=== PATIENT | female | born 1955 | race Hispanic/Latino ===

== ENCOUNTER 2018-01-05 09:19 | Emergency (ER) | payer OTHER ==
[2018-01-05 09:20] VITALS: BMI 29.8
[2018-01-05 09:36] VITALS: BP 164/91; PULSE 68; RESP 20; TEMP 97.8; O2SAT 98
--- NOTE | 2018-01-05 12:44 | RAD ---
PROCEDURE: Radiographs of the left humerus. HISTORY: r/o DVT COMPARISON: None. FINDINGS: BONES: Normal. No fracture or focal lesion. SOFT TISSUES: Normal. OTHER FINDINGS: None. IMPRESSION: Normal radiographs of left humerus.
--- NOTE | 2018-01-05 13:04 | C.PDOC ---
History Of Present Illness 62 y/o female presents to the ER complaining of left upper arm pain which has been present for the past 1 week. Patient states that she had a bruise in her left arm after she tripped and struck her left arm against a bannister 1 week ago. Patient reports that she saw a small "ball" in the area of the bruise. Patient denies chest pain and SOB. Time Seen by Provider: 01/05/18 09:45 Chief Complaint (Nursing): Upper Extremity Problem/Injury History Per: Patient History/Exam Limitations: no limitations Onset/Duration Of Symptoms: Days Current Symptoms Are (Timing): Still Present Severity: Moderate Past Medical History Reviewed: Historical Data, Nursing Documentation, Vital Signs Vital Signs: Last Vital Signs Temp 97.8 F 01/05/18 09:33 Pulse 68 01/05/18 09:33 Resp 20 01/05/18 09:33 BP 164/91 H 01/05/18 09:33 Pulse Ox 98 01/05/18 13:15 - Medical History PMH: HTN Denies: Colonic Polyps, Fractures Surgical History: Denies: Endoscopy - [facility] Procedures CLOSURE SKIN & SUBCUTANEOUS NEC (03/08/15) Family History: States: No Known Family Hx - Social History Hx Tobacco Use: No Hx Alcohol Use: No Hx Substance Use: No - Immunization History Hx Tetanus Toxoid Vaccination: No Hx Influenza Vaccination: No Hx Pneumococcal Vaccination: No Review Of Systems Except As Marked, All Systems Reviewed And Found Negative. Cardiovascular: Negative for: Chest Pain Respiratory: Negative for: Shortness of Breath Musculoskeletal: Positive for: Arm Pain (left upper arm pain) Physical Exam - Physical Exam Appears: Non-toxic, No Acute Distress Skin: Normal Color, Warm, Ecchymosis (ecchymosis to medial aspect of left arm with small hematoma upon palpation) Head: Atraumatic, Normacephalic Eye(s): bilateral: Normal Inspection Nose: Normal Oral Mucosa: Moist Neck: Supple Chest: Symmetrical Cardiovascular: Rhythm Regular Respiratory: Normal Breath Sounds, No Accessory Muscle Use, No Rales, No Rhonchi , No Wheezing Extremity: Normal ROM Neurological/Psych: Oriented x3, Normal Speech, Normal Motor, Normal Sensation ED Course And Treatment O2 Sat by Pulse Oximetry: 98 (RA) Pulse Ox Interpretation: Normal - Other Rad Left Humerus X-Ray X-Ray: Viewed By Me, Read By Radiologist Interpretation: PROCEDURE: Radiographs of the left humerus. HISTORY: r/o DVT. COMPARISON: None. FINDINGS: BONES: Normal. No fracture or focal lesion. SOFT TISSUES: Normal. OTHER FINDINGS: None. IMPRESSION: Normal radiographs of left humerus. Progress Note: X-Ray- Left Humerus found to be negative.Patient discharged and told to follow up with doctor for re-evaluation. Disposition - Disposition Referrals: [facility] Bibiana Christianson, [Non-Staff] - Disposition: HOME/ ROUTINE Disposition Time: 11:10 Condition: GOOD Additional Instructions: Thank you for letting us take care of you today. The emergency medical care you received today was directed at your acute symptoms. If you were prescribed any medication, please fill it and take as directed. It may take several days for your symptoms to resolve. Return to the Emergency Department if your symptoms worsen, do not improve, or if you have any other problems. Please contact your doctor or call one of the physicians/clinics you have been referred to that are listed on the Patient Visit Information form that is included in your discharge packet. Bring any paperwork you were given at discharge with you along with any medications you are taking to your follow up visit. Our treatment cannot replace ongoing medical care by a primary care provider (PCP) outside of the emergency department. Thank you for allowing the [facility] team to be part of your care today. Follow up with your doctor as needed for re-evaluation and further management. Instructions: Contusion (DC) Forms: [employer] ([place]) - Clinical Impression Clinical Impression: Arm pain
--- NOTE | 2018-01-05 15:12 | VASCLAB ---
PROCEDURE: Left Upper Extremity Venous Duplex Exam HISTORY: Pain in limb, r/o DVT PRIORS: None. TECHNIQUE: Left upper extremity, internal jugular, subclavian, axillary, brachial, ulnar, radial, basilic and upper cephalic veins were evaluated. Flow was assessed with color Doppler, compressibility, assessment of phasic flow and augmentation response. Report prepared by JESSY Bhagat FINDINGS: LEFT: 1. Internal Jugular: 1.1. Compressibility - Fully compressible: Thrombus - None : Flow - Phasic: Augmentation -Normal: Reflux - None. 2. Subclavian: 2.1. Compressibility - Fully compressible: Thrombus - None : Flow - Phasic: Augmentation -Normal: Reflux - None. 3. Axillary: 3.1. Compressibility - Fully compressible: Thrombus - None : Flow - Phasic: Augmentation -Normal: Reflux - None. 4. Brachial: 4.1. Compressibility - Fully compressible: Thrombus - None: Flow - Phasic: Augmentation -Normal: Reflux - None. 5. Ulnar: 5.1. Compressibility - Fully compressible: Thrombus - None: Flow - Phasic: Augmentation -Normal: Reflux - None. 6. Radial: 6.1. Compressibility - Fully compressible: Thrombus - None: Flow - Phasic: Augmentation - Normal: Reflux - None. 7. Cephalic: 7.1. Not visualized. 8. Basilic: 8.1. Compressibility - Fully compressible: Thrombus - None: Flow - Phasic: Augmentation -Normal: Reflux - None. OTHER FINDINGS: Left: None. IMPRESSION: Left: No evidence of vein thrombosis of the left upper extremity with excellent venous flow. Normal valve function noted of the left side. Normal venous flow noted in the right internal jugular and right subclavian veins.
== END 2018-01-05 11:26 | disposition home or self-care (01) ==
LOC: C.ER 09:19
DX: M79.622 Pain in left upper arm (principal); I10 Essential (primary) hypertension

== ENCOUNTER → 2019-02-20 | Outpatient (CLI) | payer OTHER | LOC: C.RADIC 15:10 ==